=== PATIENT | female | born 1935 | race Caucasian/White ===

== ENCOUNTER 2017-11-09 08:03 | Day surgery (SDC) | payer MEDICARE ==
[2017-11-03 15:47] VITALS: BMI 35.5
[~2017-11-09 08:03] MED LIST: LACTATED RINGERS 1,000 ML IV SCH
[2017-11-09 08:28] VITALS: RESP 16; TEMP 98
[2017-11-09] MEDS ORDERED: LIDOCAINE 1% 20 ML VIAL (10MG/ML) FOR IV START INTRADERMA ONE (08:38)
[2017-11-09] MEDS ORDERED: LIDOCAINE 1% INJ 10MG/ML (20 ML MDV) ONE (08:54)
[2017-11-09] MEDS ORDERED: PROPOFOL 10 MG/ML 20 ML VIAL IV ONE (08:54)
--- NOTE | 2017-11-09 09:31 | P.PCN ---
Date of Procedure: 11/09/17 Procedure(s) Performed: Procedure: Esophagogastroduodenoscopy and dilation of duodenal post bulbar stricture up to 12 mm. 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 Postoperative diagnosis: 1. High-grade stenosis in the immediate post bulbar area dilated up to 12 mm using the [employer] pyloric channel balloon dilator. 2. Hiatal hernia with no obvious complicated reflux disease. 3. Normal stomach. Preparation and sedation: Was provided by anesthesia. Brief clinical history: The patient is a 82-year-old female who was evaluated in the office regarding early satiety and weight loss progressive over the last 3 months. The patient had similar problems back in April 2014 and at that time she was found to have a post bulbar stricture that was dilated in 2013 in 2015 and she has done well until this time. Procedure: With the patient on her left lateral decubitus position and after informed consent and adequate sedation, I passed the Olympus-GIF 160 video upper endoscope through the cricopharyngeus down the esophagus. GE junction was around 32 cm from the incisors and there was a sliding hiatal hernia but no obvious esophagitis or complicated reflux disease. The endoscope was then passed into the stomach which was insufflated with air and inspected in detail including the retroflex view in the cardia. No obvious abnormalities were seen in the stomach. Finally, the endoscope was advanced through the pylorus into the duodenum. There was a high-grade stenosis in the immediate post bulbar area that would not allow the passing of the endoscope. At this point, I used the [employer] through the endoscope pyloric channel balloon dilator size 10-12 and passed it through the area of stenosis, centered it and then inflated it in a stepwise fashion up to 12 mm. I was able to pass the endoscope passed through into the descending duodenum without difficulty once the dilation was accomplished. The patient tolerated the procedure well and did not have any immediate complication. Plan: The patient will be kept on clear liquids today then her diet can be advanced tomorrow as tolerated. Based on her symptoms, I anticipate considering further dilation depending on her symptoms in the future. She will follow-up in the office as planned.
[2017-11-09 09:45] VITALS: BP 142/71; PULSE 70
== END 2017-11-09 10:25 | disposition home or self-care (01) ==
LOC: ORWHC2ENDO 08:03
DX: K31.5 Obstruction of duodenum (principal); K21.9 Gastro-esophageal reflux disease without esophagitis; I10 Essential (primary) hypertension; M19.90 Unspecified osteoarthritis, unspecified site; Z85.41 Personal history of malignant neoplasm of cervix uteri; Z79.82 Long term (current) use of aspirin; Z79.899 Other long term (current) drug therapy
CPT/HCPCS: 43245; J2001; J2704; C1726

== ENCOUNTER 2020-12-16 08:53 | Day surgery (SDC) | payer MEDICARE ==
[2020-12-14 10:58] VITALS: BMI 31.7
[2020-12-16 09:30] VITALS: TEMP 98.2
[2020-12-16] MEDS ORDERED: LACTATED RINGERS 1,000 ML IV ONE (09:36)
[2020-12-16] MEDS ORDERED: LIDOCAINE 1% (10MG/ML) FOR IV START INTRADERMA ONE (09:36)
[2020-12-16] MEDS ORDERED: PROPOFOL 10 MG/ML 20 ML VIAL IV ONE (09:58)
[2020-12-16] MEDS ORDERED: LIDOCAINE 1% INJ 10MG/ML (20 ML MDV) ONE (09:58)
--- NOTE | 2020-12-16 10:16 | P.PCN ---
Date of Procedure: 12/16/20 Procedure(s) Performed: BRIEF HISTORY: Patient is a 85-year-old, pleasant, white female scheduled for an upper endoscopy with a possible dilation as a part of evaluation of epigastric discomfort, early satiety and intermittent nausea vomiting. She was diagnosed with duodenal stricture in 2018 for which she underwent EGD with dilation with Dr. Gentile. PROCEDURE PERFORMED: Esophagogastroduodenoscopy with stricture dilation. PREOPERATIVE DIAGNOSIS: Symptomatic duodenal stricture. IV sedation per anesthesia. PROCEDURE: After informed consent was obtained, the patient was brought into the endoscopy unit. IV sedation was administered by Anesthesia under continuous monitoring. Initially the Olympus GIF-140 video endoscope was inserted into the mouth. Esophagus intubated without any difficulty. It was gradually advanced into the stomach and duodenum bulb and carefully examined. The of the duodenum appeared normal. There was a very tight post bulbar duodenal stricture and he could not advance the scope through this area. The luminal diameter of the cecum was to 3 mm. At this time I proceeded with pyloric balloon dilation and the wire was passed patchy through the stricture and the dilator was passed over the wire and was dilated initially to 8 mm and subsequently to 19 mm sequentially for 60 seconds. There was a small superficial ulceration noted around the duodenal stricture. Some oozing identified following dilation. The scope at this time was withdrawn to the stomach, adequately insufflated with air, and upon careful examination, mucosa of the antrum, body, cardia and the fundus appeared normal. The scope was then withdrawn into the esophagus. The GE junction was located at 39 cm from the incisors. The esophagus appeared normal. There were no erosions or ulcerations seen and the patient tolerated the procedure well. IMPRESSION: 1. Tight post bulbar duodenal stricture status post balloon dilation using 8-10 mm TTS balloon as the scope could not be advanced. 2. Ulceration noted along the duodenal stricture. RECOMMENDATIONS: The findings of this examination were discussed with the patient as well as a family. She was advised to be on a clear liquid diet today. She will continue with Protonix 40 mg daily and avoid NSAIDs. She'll be seen in office in 2-3 months..
[2020-12-16 10:50] VITALS: BP 166/96; PULSE 55; RESP 20
== END 2020-12-16 10:49 | disposition home or self-care (01) ==
LOC: ORWHC2ENDO 08:53
PROVIDERS: ATTEND Internal Medicine Gastroenterology
DX: K31.5 Obstruction of duodenum (principal); I49.9 Cardiac arrhythmia, unspecified; I10 Essential (primary) hypertension; I48.91 Unspecified atrial fibrillation; K21.9 Gastro-esophageal reflux disease without esophagitis; R35.0 Frequency of micturition; Z79.01 Long term (current) use of anticoagulants
CPT/HCPCS: 43245; J2001; J2704; C1726

== ENCOUNTER 2021-03-30 07:48 | Day surgery (SDC) | payer MEDICARE ==
[2021-03-26 09:56] VITALS: BMI 32.3
[~2021-03-30 07:48] MED LIST changes: +LIDOCAINE 1% (10MG/ML) FOR IV START INTRADERMA PRN
[2021-03-30 08:29] VITALS: TEMP 98.4
[2021-03-30] MEDS ORDERED: LIDOCAINE 1% INJ 10MG/ML (20 ML MDV) ONE (09:00)
[2021-03-30] MEDS ORDERED: PROPOFOL 10 MG/ML 20 ML VIAL IV ONE (09:00)
[2021-03-30 09:33] VITALS: PULSE 55; RESP 16
--- NOTE | 2021-03-30 09:35 | P.PCN ---
Date of Procedure: 03/30/21 Procedure(s) Performed: BRIEF HISTORY: Patient is a 85-year-old, pleasant, white female scheduled for an upper endoscopy as a part of evaluation of nausea vomiting for the last several months duration. She was diagnosed with tight duodenal stricture that was diagnosed in December 2020 was dilated with a 10 mm TTS balloon. She did well for a few weeks. Recurrent symptoms he scheduled for repeat upper endoscopy with dilation today. PROCEDURE PERFORMED: Esophagogastroduodenoscopy with attempted duodenal stricture dilation. PREOPERATIVE DIAGNOSIS: Symptomatic duodenal stricture. IV sedation per anesthesia. PROCEDURE: After informed consent was obtained, the patient was brought into the endoscopy unit. IV sedation was administered by Anesthesia under continuous monitoring. Initially the Olympus GIF-140 video endoscope was inserted into the mouth. Esophagus intubated without any difficulty. It was gradually advanced into the stomach . The scope advanced into the duodenal bulb that appeared normal. There was a tight duodenal stricture measuring about 3 mm in diameter along the duodenal sweep and scope could not be advanced this area. At this time I proceeded with balloon dilation but despite multiple attempts because of angulation of the stricture I was not able to pass the guidewire safely through the stricture and hence dilation could not be performed. The scope at this time was withdrawn to the stomach, adequately insufflated with air, and upon careful examination, mucosa of the antrum, body, cardia and the fundus appeared normal. The scope was then withdrawn into the esophagus. The GE junction was located at 39 cm from the incisors. The esophagus appeared normal. There were no erosions or ulcerations seen and the patient tolerated the procedure well. IMPRESSION: 1. Tight duodenal post bulbar stricture with a luminal diameter of 3-4 mm status post attempted dilation but was not successful because of angulation of the stricture. 2. Or hiatal hernia. RECOMMENDATIONS: The findings of this examination were discussed with the patient is a family. She will continue with small frequent meals and continue Protonix 40 mg daily. If she remains symptomatic we'll consider surgical evaluation for a gastrojejunostomy.
[2021-03-30 10:04] VITALS: BP 175/71
== END 2021-03-30 10:20 | disposition home or self-care (01) ==
LOC: ORWHC2ENDO 07:48
PROVIDERS: ATTEND Internal Medicine Gastroenterology
DX: K44.9 Diaphragmatic hernia without obstruction or gangrene (principal); Z79.01 Long term (current) use of anticoagulants; Z79.899 Other long term (current) drug therapy; I10 Essential (primary) hypertension; I48.91 Unspecified atrial fibrillation; M19.90 Unspecified osteoarthritis, unspecified site; K21.9 Gastro-esophageal reflux disease without esophagitis
CPT/HCPCS: 43245; J2001; J2704; C1726

== ENCOUNTER → 2021-05-06 | Outpatient (CLI) | payer MEDICARE ==
--- NOTE | 2021-05-06 10:16 | FL ---
EXAMINATION: Upper GI with small bowel follow through DATE: 05/06/2021 CLINICAL INDICATION: 85-year-old female K31.5. Obstruction of duodenum. COMPARISON: None Total Fluoroscopy Time: 3 minutes 10 seconds 76 images obtained. FINDINGS: The esophagus has a normal course and caliber. There are mild tertiary peristaltic waves and blunted secondary stripping waves suggesting mild esophageal dysmotility. The mucosa is normal. No suspicious filling defects. There is a small to moderate-sized sliding hiatal hernia. Mild spontaneous gastroesophageal reflux is noted. The stomach and duodenum are free of any persistent filling defect and demonstrate a normal mucosal p attern. Following administration of barium, serial films were carried out to approximately 45 minutes. Barium is seen to reach the colon at 30 minutes which is the lower limits of normal. Loops of jejunum and ileum are compressed and examined under fluoroscopy. The small bowel loops have a normal-caliber. Mucosal pattern is within normal limits. No intrinsic or extrinsic process is suspe cted. IMPRESSION: 1. A small to moderate-sized sliding hiatal hernia with mild spontaneous gastroesophageal reflux visu alized. 2. Mild esophageal dysmotility. 3. No appreciable stricture or obstruction with particular attention to the duodenum. 4. Small bowel transit time 30 minutes, lower limits of normal
== END | disposition home or self-care (01) ==
LOC: RADFLMAIN 07:48
PROVIDERS: ATTEND Surgery Plastic and Reconstructive Surgery
DX: K21.9 Gastro-esophageal reflux disease without esophagitis (principal); K44.9 Diaphragmatic hernia without obstruction or gangrene; K22.4 Dyskinesia of esophagus
CPT/HCPCS: 74240; 74248

== ENCOUNTER → 2022-02-22 | Outpatient (CLI) | payer MEDICARE ==
--- NOTE | 2022-02-22 18:23 | CT ---
EXAMINATION TYPE: CT right knee - [facility] Protocol CT DLP: 787.3 mGycm, Automated exposure control for dose reduction was used. DATE OF EXAM: 02/22/2022 4:31 PM COMPARISON: None CLINICAL INDICATION:Female, 86 years old with history of M25.561 PAIN IN RIGHT KNEE; TECHNIQUE: Axial images were obtained of the right knee . Additional coronal and sagittal reformatte d images and soft tissue and bone window were obtained for review. Contrast used: None Oral contrast used: None FINDINGS: Has end-stage osteoarthrosis changes of the right knee with osteophyte formation of the pat alessio, femoral condyles and the tibial plateau. There is joint space narrowing and [id number] articu lation of the medial compartment. There is no evidence of fracture. The right hip demonstrates mild osteoarthrosis changes with minimal cellular osteophyte formation. Vi sualized ankle demonstrates mild degeneration changes with remote injury of the deltoid ligament sugg nazariod. Scattered clonic diverticula within the visualized pelvis. Atherosclerosis of the arterial vasculatur e is mild. IMPRESSION: 1. End-stage osteoarthrosis of the right knee. 2. No evidence of fracture.
== END | disposition home or self-care (01) ==
LOC: RADCTMAIN 15:12
PROVIDERS: ATTEND Orthopaedic Surgery
DX: M17.11 Unilateral primary osteoarthritis, right knee (principal)

== ENCOUNTER → 2022-03-14 | Outpatient (CLI) | payer MEDICARE ==
[2022-03-14 12:01] LABS: Partial Thromboplastin Time 26.5 sec (22.0-30.0)
[2022-03-14 15:27] LABS: INR 1.1 (<1.2); Prothrombin Time 11.9 sec (9.0-12.0)
[2022-03-14 15:29] LABS: Basophils # (A) 0.04 X 10*3/uL (0.00-0.10); Basophils % (A) 0.7 %; Eosinophils # (A) 0.11 X 10*3/uL (0.04-0.35); Eosinophils % (A) 1.8 %; HCT 36.4 % (37.2-46.3); HGB 11.5 g/dL (12.0-15.0); Immature Grans, Automated 0.3 %; Lymphocytes # (A) 1.68 X 10*3/uL (0.90-5.00); Lymphocytes % (A) 27.8 %; MCH 28.9 pg (27.0-32.0); MCHC 31.6 g/dL (32.0-37.0); MCV 91.5 fL (80.0-97.0); Mean Platelet Volume 10.6 fL (9.5-12.2); Monocytes % (A) 8.3 %; NRBC Per 100 WBC 0 /100 WBCS (0.0-0.0); Neutrophils # (A) 3.69 X 10*3/uL (1.80-7.70); Neutrophils % (A) 61.1 %; Platelet Count 248 X 10*3/uL (140-440); RBC 3.98 X 10*6/uL (4.10-5.20); RDW 15.4 % (11.5-14.5); WBC 6.04 X 10*3/uL (4.50-10.00)
[2022-03-14 16:16] LABS: African American GFR (CKD) 53.4 (60.0-200.0); Albumin 4.4 g/dL (3.8-4.9); Albumin/Globulin Ratio 2.2 (1.60-3.17); Anion Gap 9.9 mmol/L (10.00-18.00); BUN/Creat Ratio 20.73 Ratio (12.00-20.00); Blood Urea Nitrogen 22.8 mg/dL (9.0-27.0); Calcium 9.5 mg/dL (8.7-10.3); Carbon Dioxide 23.1 mmol/L (20.0-27.5); Non-African American GFR(CKD) 46.1 (60.0-200.0); Total Bilirubin 0.3 mg/dL (0.30-1.20); Total Protein 6.4 g/dL (6.2-8.2)
== END | disposition home or self-care (01) ==
LOC: LABWHC1 10:01
PROVIDERS: ATTEND Orthopaedic Surgery
DX: Z01.812 Encounter for preprocedural laboratory examination (principal); M17.11 Unilateral primary osteoarthritis, right knee
CPT/HCPCS: 80053; 85025; 85610; 85730; 87070; 87086; 93005

== ENCOUNTER 2022-04-01 08:45 | Observation (INO) | payer MEDICARE ==
[2022-03-25 14:13] VITALS: BMI 31.2
[~2022-04-01 08:45] MED LIST changes: +ACETAMINOPHEN TAB 500 MG TAB PO PRN; +DEXAMETHASONE SOD PHOSPHATE 10 MG/ML 1 ML VIAL IV PRN; +DOCUSATE 100 MG CAP PO PRN; +FAMOTIDINE 20 MG/2 ML VIAL IVP PRN; +KETOROLAC 15 MG/ML 1 ML VIAL IVP PRN; -LACTATED RINGERS 1,000 ML IV SCH; -LIDOCAINE 1% (10MG/ML) FOR IV START INTRADERMA PRN; +ONDANSETRON 4 MG/2 ML VIAL IVP PRN; +TRANEXAMIC ACID IN NACL,ISO-OS 1,000 MG in SALINE 1 100ML.BAG IVPB PRN; +oxyCODONE ER 10 MG TAB.ER.12H PO PRN
[2022-04-01] MEDS ORDERED: LACTATED RINGERS 1,000 ML IV ONE (09:20)
[2022-04-01] MEDS ORDERED: MIDAZOLAM 2 MG/2 ML VIAL IVP ONE (09:38)
--- NOTE | 2022-04-01 10:04 | P.ANPRN ---
Procedure Note - Anesthesia - Nerve Block Performed Right Adductor Canal Single Time Out Performed: Yes Date of Procedure: 04/01/22 Procedure Start Time: 09:37 Procedure Stop Time: 09:44 Location of Patient: PreOp Indication: Acute Post-Operative Pain, Requested by Surgeon Sedation Type: Sedate with meaningful contact maintained Preparation: Sterile Prep, Sterile Dressing Position: Supine Catheter: None Needle Types: Facet Needle Gauge: 21 Ultrasound used to visualize needle placement: Yes Ultrasound used to observe medication spread: Yes Injectate: 0.5% Ropivacaine (see comment for volume) (15 ml + decadron 2 mg) Blood Aspirated: No Pain Paresthesia on Injection Noted: No Resistance on Injection: Normal Image Stored and Saved: Yes Events: Uneventful and Well Tolerated Right iPack Single Time Out Performed: Yes Date of Procedure: 04/01/22 Procedure Start Time: 09:45 Procedure Stop Time: 09:52 Location of Patient: PreOp Indication: Acute Post-Operative Pain, Requested by Surgeon Sedation Type: Sedate with meaningful contact maintained Preparation: Sterile Prep, Sterile Dressing Position: Left Lateral Catheter: None Needle Types: Facet Needle Gauge: 20 Ultrasound used to visualize needle placement: Yes Ultrasound used to observe medication spread: Yes Injectate: 0.5% Ropivacaine (see comment for volume) (15 ml + decadron 2 mg) Blood Aspirated: No Pain Paresthesia on Injection Noted: No Resistance on Injection: Normal Image Stored and Saved: Yes Events: Uneventful and Well Tolerated
[2022-04-01] MEDS: ROPIVACAINE/EPI/CLONIDINE/KET 50 ML SYRINGE MISCELLANE PRN ×2 (10:46→11:38)
[2022-04-01] MEDS ORDERED: ROCURONIUM 10 MG/ML (5 ML VIAL) IV ONE (12:25)
[2022-04-01] MEDS ORDERED: NEOSTIGMINE 1 MG/ML 10 ML VIAL ONE (12:25)
[2022-04-01] MEDS ORDERED: TRANEXAMIC ACID IN NACL,ISO-OS 1,000 MG/100 ML BAG ONE (12:25)
[2022-04-01] MEDS ORDERED: METOPROLOL TARTRATE 5 MG/5 ML VIAL IVP ONE (12:25)
[2022-04-01] MEDS ORDERED: fentaNYL (PF) 50 MCG/ML 2 ML AMP ONE (12:25)
[2022-04-01] MEDS ORDERED: GLYCOPYRROLATE 0.2 MG/ML 2 ML VIAL ONE (12:25)
[2022-04-01] MEDS ORDERED: LIDOCAINE 2% INJ 20 MG/ML (2 ML VIAL) ONE (12:25)
[2022-04-01] MEDS ORDERED: DEXAMETHASONE SOD PHOSPHATE 4 MG/ML 1 ML VIAL ONE (12:25)
[2022-04-01] MEDS ORDERED: SUCCINYLCHOLINE CHLORIDE 200 MG/10 ML VIAL IV ONE (12:25)
[2022-04-01] MEDS ORDERED: HYDROmorphone (PF) 1 MG/ML ONE (12:25)
[2022-04-01] MEDS ORDERED: PROPOFOL 10 MG/ML 20 ML VIAL IV ONE (12:25)
[2022-04-01] MEDS ORDERED: ROPIVACAINE 5 MG/ML 30 ML VIAL ONE (12:25)
[2022-04-01] MEDS ORDERED: HYDROmorphone 0.5 MG/0.5 ML SYRINGE IVP PRN ×3 (12:29)
[2022-04-01] MEDS ORDERED: NALOXONE 0.4 MG/ML 1 ML VIAL IV PRN (12:29)
[2022-04-01] MEDS ORDERED: hydrOXYzine pamoate 25 MG CAP PO PRN (12:29)
[2022-04-01] MEDS ORDERED: ONDANSETRON 4 MG/2 ML VIAL IVP PRN (12:29)
--- NOTE | 2022-04-01 12:30 | P.OP ---
Date of Procedure: 04/01/22 Preoperative Diagnosis: 1. Severe right knee osteoarthritis 2. Atrial fibrillation Postoperative Diagnosis: Same Procedure(s) Performed: Right total knee arthroplasty Implants: 1. [employer] CR Femur Size #2 2. [employer]lon [place] Tibial Base Size #1 3. [employer] Triathlon CS poly Size #1, 9-mm 4. [place] Triathlon all poly patella, Size #29 Anesthesia: HARVINDER, regional Surgeon: Jacinto Randle Excel Expert #1: Aleta Parada Estimated Blood Loss (ml): 50 IV fluids (ml): 800 Pathology: none sent Condition: stable Disposition: PACU Indications for Procedure: I met with the patient preoperatively in the office setting and discussed treatment of their symptomatic knee arthritis. They failed a long course of nonsurgical treatment and elected to proceed with an elective total knee re placement. I discussed the potential risks and complications at length and gave them ample time to ask questions. Risks discussed included: risks from anesthesia, superficial site surgical infection, acute and/or chronic periprosthetic joint infection, delayed wound healing, drainage, wound necrosis, instability, stiffness, stiffness requiring manipulation and/or revision surgery, damage to local blood vessels or nerves, aseptic loosening of the implants, extensor mechanism issues including disruption, patellar maltracking, avascular necrosis etc., continued or worsened knee pain, generalized dissatisfaction with surgical outcome, need for revision surgery, an inability to regain preinjury level of function, DVT, PE, other medical complications, and possibly loss of life or limb. The patient voiced their understanding that while these are the most common complications other less common complications are possible. They provided both their verbal and written consent to go forward with surgery. Operative Findings: Severe tricompartmental osteoarthritis Description of Procedure: The patient was identified in preoperative holding and the correct operative extremity was verified and marked with a marker. I reviewed the consent form with the patient at length. All of their questions were answered. The patient was given a block by anesthesia. They were then brought back to the operating room. They were transferred onto the operating room table where a general anesthetic, preoperative antibiotics, and tranexamic acid were administered by anesthesia. A tourniquet was applied to the proximal aspect of the operative extremity. The contralateral extremity was padded under the heel and secured to the operating room table with a nonsterile blue towel and tape. The ipsilateral arm was carefully draped across the patient's chest and secured with a pillow and foam. A post was applied over the lateral aspect of the ipsilateral thigh and a bolster was placed under the ipsilateral foot. I verified that the operative extremity was stable and the knee was flexed to 90. The operative extremity was then placed in a leg mitchell, nonsterile drapes were applied, and the extremity was prepped and draped sterilely in the standard sterile fashion. Prior to starting surgery timeout was performed identifying the correct patient, operative extremity, and procedure. The leg was then elevated, exsanguinated with an Esmarch bandage, and the tourniquet was inflated. An anterior midline incision was made sharply with a scalpel. Once I had dissected deep to the superficial fascial layer medial and lateral flaps were elevated. A medial parapatellar arthrotomy was created. Upon opening the knee joint there were diffuse arthritic changes in all 3 compartments. The anterior horn of the medial meniscus were sharply released and a medial release was performed around the posterior medial corner of the knee to facilitate retractor placement. The fat pad was excised with electrocautery. The patella was found to be severely arthritic and a provisional cut was made with a sagittal saw to facilitate mobilization of the extensor mechanism during the procedure. Remnants of the ACL and PCL were then excised from the notch. 4 mm pins were then placed within the incision in the medial distal femur and proximal tibia. Arrays were applied to the pins and I verified they were completely tightened. The knee was then registered with the [employer] robot and manipulations in implant position were made to balance the knee and opitmize implant position. Using the Drew robotic saw all cuts were made in accordance with our plan. After all bony fragments had been removed the cuts were verified with the planar probe. The t ibia was then subluxed forward and sized. The knee was brought into flexion and a lamina dramatic director was placed to allow removal of the meniscal remnants both medially and laterally as well as posterior osteophytes. Local anesthetic was then infiltrated around the joint capsule. Trial implants were then placed within the knee. Range of motion and collateral ligament tension was then evaluated. Adjustments in implant size and position were then made accordingly. Once the knee was felt to be appropriately balanced the Drew pins were removed. The patella was then recut, sized, and punched. A trial patellar button was then placed. With the trial components in place, the patella tracked midline. The femur was then drilled and the trial component removed. The trial tibial component was then appropriately rotated, pinned, and prepared for the keel. All trial components were then removed from the knee. The knee was thoroughly irrigated with pulsatile lavage. Cement was prepared via vacuum mixing in a bowl on the back table. I then hand pressurized cement into the femur and tibia and placed the implants beginning with the tibial base tray and poly liner, femoral component, and finally the patellar button. All extruded cement was removed including from the pin sites. Once the cement had hardened the knee was evaluated one final time with the final polyethylene liner in place. The knee had full extension and flexion and felt stable to varus and valgus stress throughout the arc of motion. The tourniquet was released and with the tourniquet down the patella tracked midline. All bleeders were controlled with electrocautery. The knee was then soaked for 3 minutes with a dilute Betadine soak. The knee was thoroughly irrigated using 3 L of sterile saline and pulsatile lavage. A deep drain was placed. The extensor mechanism was then reapproximated using pop off Vicryl sutures followed by a running barbed suture. The knee was then closed in layers with a 0 strata fix for the deep fascial layer, 2-0 strata fix for the superficial subcutaneous layer and Monocryl and Steri-Strips for the skin. A sterile dressing and drain sponge were applied. I verified that all instrument, sponge, and sharp counts were correct. The patient was then transferred off the operating room table, extubated, and brought to recovery having tolerated the procedure well. Aleta Parada PA-C was required as a skilled senior administrative assistant due to the complexity of the procedure for patient positioning, draping, retraction, placement of hardware, and closure of wound. PLAN: The patient can weight-bear as tolerated on the operative extremity. DVT prophylaxis - can resume Eliquis. Follow-up in the office in 2 weeks for wound check and x-rays of the knee including an AP and lateral.
--- NOTE | 2022-04-01 12:58 | XR ---
EXAMINATION TYPE: XR knee limited RT DATE OF EXAM: 04/01/2022 COMPARISON: NONE HISTORY: 86-year-old female postoperative evaluation right knee TECHNIQUE: 2 views FINDINGS: Images show placement of right total knee arthroplasty. Both distal femoral and proximal ti bial components of the prosthesis are well seated without periprosthetic fracture. Surgical drain ext ends to the suprapatellar region. Anterior soft tissue swelling with scattered soft tissue air as wel l as intra-articular air related to recent operation. Alignment grossly anatomic. IMPRESSION: Uncomplicated postoperative appearance right total knee arthroplasty.
[2022-04-01] MEDS: LACTATED RINGERS 1,000 ML IV SCH (13:17)
[2022-04-01] MEDS: HYDROcodone/APAP 5-325MG 1 EACH TAB PO PRN (20:02)
[2022-04-01] MEDS: SENNOSIDES-DOCUSATE SODIUM 1 EACH TAB PO SCH (20:49)
[2022-04-02] MEDS: LACTATED RINGERS 1,000 ML IV SCH ×3 (00:02→20:28)
[2022-04-02] MEDS: HYDROcodone/APAP 5-325MG 1 EACH TAB PO PRN ×4 (02:28→20:29)
[2022-04-02] MEDS: FAMOTIDINE 20 MG TAB PO SCH (08:26)
--- NOTE | 2022-04-02 08:58 | P.CONS ---
History of Present Illness - History of Present Illness This is a pleasant 86 years old female with multiple medical problems admitted for severe osteoarthritis and she underwent total knee arthroplasty. Today is postoperative day #1. Patient denies chest pain or dyspnea. No other complaints. No abdominal pain, she has constipation but she wants to wait and denied any legs active, no urinary complaints like no change in frequency or dysuria, no headache or numbness or weakness. No headache or dizziness. Last that she has some hallucination and she got agitated and pulled her IV line, could be secondary to anesthesia medications However this morning is back to normal Vitals stable and blood pressure is normal. 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, anemia, overactive bladder, History of Any Multi-Drug Resistant Organisms: None Reported Past Surgical History: Heart Catheterization, Hysterectomy, Joint Replacement, Tonsillectomy Additional Past Surgical History / Comment(s): Colonoscopy; RICHARD CATARACT, EGD'SWITH DILATATION x8, left knee replacement Past Anesthesia/Blood Transfusion Reactions: Motion Sickness Past Psychological History: No Psychological Hx Reported Smoking Status: Never smoker Past Alcohol Use History: Rare Past Drug Use History: None Reported - Past Family History Mother Family Medical History: Hypertension, Osteoarthritis (OA) Father Family Medical History: Cancer Son(s) Family Medical History: Cancer Medications and Allergies Home Medications Medication Instructions Recorded Confirmed Type Celecoxib [CeleBREX] 200 mg PO DAILY 04/25/14 03/25/22 History Cholecalciferol [Vitamin D3] 2,000 unit PO DAILY 04/25/14 04/01/22 History Diltiazem Cd [Cardizem CD] 180 mg PO DAILY 04/25/14 03/25/22 History Lansoprazole [Prevacid] 30 mg PO DAILY 04/25/14 03/25/22 History Oxybutynin Chloride [Ditropan] 5 mg PO BID 04/25/14 04/01/22 History Docusate [Colace] 100 mg PO DAILY 11/03/17 03/25/22 History Apixaban [Eliquis] 5 mg PO BID 12/14/20 04/01/22 History lisinopriL [Zestril] 10 mg PO DAILY 12/14/20 03/25/22 History Acetaminophen [Tylenol Arthritis] 650 mg PO DIRECTED PRN 03/25/22 03/25/22 History Metoprolol Tartrate [Lopressor] 50 mg PO QAM 03/25/22 03/25/22 History Docusate [Colace] 100 mg PO BID #60 capsule 04/01/22 Rx HYDROcodone/APAP 5-325MG [[place] 1 - 2 tab PO Q6HR PRN 7 Days #32 04/01/22 Rx 5-325] tab Omeprazole 40 mg PO DAILY 30 Days #30 cap 04/01/22 Rx Allergies Allergy/AdvReac Type Severity Reaction Status Date / Time No Known Allergies Allergy Verified 04/01/22 09:08 Physical Exam Vitals: Vital Signs Temp Pulse Pulse Resp BP BP Pulse Ox 04/02/22 08:00 98.0 F 105 H 16 119/67 93 L 04/02/22 02:00 98.0 F 95 16 142/76 95 04/01/22 20:00 97.5 F L 95 16 125/68 96 04/01/22 15:49 18 04/01/22 15:07 77 135/69 93 L 04/01/22 14:51 91 125/71 93 L 04/01/22 14:37 100 123/81 95 04/01/22 14:21 87 138/78 97 04/01/22 14:06 88 142/85 94 L 04/01/22 14:00 98.2 F 77 18 132/81 95 04/01/22 13:48 98.1 F 79 18 143/72 94 L 04/01/22 13:14 92 16 146/83 99 04/01/22 12:59 92 16 134/69 97 04/01/22 12:44 86 16 116/63 96 04/01/22 12:29 97 F L 83 14 112/55 97 04/01/22 09:50 75 16 132/57 98 04/01/22 09:08 97.4 F L 95 16 138/73 99 Intake and Output 04/01/22 04/02/22 04/02/22 22:59 06:59 14:59 Intake Total 1080 240 Output Total 10 60 Balance 1070 180 Intake: Intake, IV Titration 600 Amount Lactated Ringers 1,000 ml 600 @ 100 mls/hr IV .Q10H [facility] Rx#:[id number] Oral 480 240 Output: Drainage 10 60 Right Knee 10 60 Other: Voiding Method Bedside Commode # Voids 2 1 GENERAL: The patient is alert and oriented x3, not in any acute distress. Well developed, well nourished. HEENT: Pupils are round and equally reacting to light. EOMI. No scleral icterus. No conjunctival pallor. Normocephalic, atraumatic. No pharyngeal erythema. No thyromegaly. CARDIOVASCULAR: S1 and S2 present. No murmurs, rubs, or gallops. PULMONARY: Chest is clear to auscultation, no wheezing or crackles. ABDOMEN: Soft, nontender, nondistended, normoactive bowel sounds. No palpable organomegaly. -MUSCULOSKELETAL: No joint swelling or deformity. Right knee surgical wound with a dressing in a Place, rest of exam is deferred to surgery team EXTREMITIES: No cyanosis, clubbing, or pedal edema. NEUROLOGICAL: Gross neurological examination did not reveal any focal deficits. SKIN: No rashes. no petechiae. Assessment and Plan Assessment: Severe osteoarthritis status post right knee arthroplasty Chronic atrial fibrillation History of GERD Plan: Continue with pain management as per surgery team Monitor blood pressure and heart rate Monitor hemoglobin Orthopedic primary team on the case Labs and medication were reviewed.. Continue same treatment. Continue with symptomatic treatment. Resume home medication. Monitor lytes and vitals. DVT and GI prophylaxis. Further recommendations as per clinical course of the patient DVT prophylaxis: Deferred to surgery team GI Prophylaxis: Isa Thank you for consulting us
[2022-04-02] MEDS: METOPROLOL TARTRATE 25 MG TAB PO SCH (12:19)
[2022-04-02 13:10] LABS: Basophils # (A) 0.02 X 10*3/uL (0.00-0.10); Basophils % (A) 0.1 %; Eosinophils # (A) 0 X 10*3/uL (0.04-0.35); Eosinophils % (A) 0 %; HCT 34.4 % (37.2-46.3); HGB 11.2 g/dL (12.0-15.0); Immature Grans, Automated 0.6 %; Lymphocytes % (A) 6.1 %; MCH 29.4 pg (27.0-32.0); MCHC 32.6 g/dL (32.0-37.0); MCV 90.3 fL (80.0-97.0); Mean Platelet Volume 10.9 fL (9.5-12.2); Monocytes # (A) 1.36 X 10*3/uL (0.20-1.00); Monocytes % (A) 7.5 %; NRBC Per 100 WBC 0 /100 WBCS (0.0-0.0); Neutrophils # (A) 15.57 X 10*3/uL (1.80-7.70); Neutrophils % (A) 85.7 %; Platelet Count 255 X 10*3/uL (140-440); RBC 3.81 X 10*6/uL (4.10-5.20); RDW 14.7 % (11.5-14.5); WBC 18.16 X 10*3/uL (4.50-10.00)
--- NOTE | 2022-04-02 14:04 | P.PN ---
Subjective Progress Note Date: 04/02/22 Principal diagnosis: Right total knee Patient is seen at bedside this morning. She is postop day #1 from right total knee arthroplasty. She has pain at the surgical site as expected but denies any new complaints. She denies numbness, tingling or calf pain. Review of systems is negative for fever, chills, chest pain, shortness of breath or other Objective - Vital Signs Vital signs: Vital Signs Temp 98.0 F 04/02/22 08:00 Pulse 105 H 04/02/22 08:00 Resp 16 04/02/22 08:00 BP 119/67 04/02/22 08:00 Pulse Ox 93 L 04/02/22 08:00 FiO2 Intake & Output 04/01/22 04/02/22 04/02/22 18:59 06:59 18:59 Intake Total 2130 240 Output Total 60 60 Balance 2070 180 Weight 72.8 kg Intake: IV 1050 Intake, IV Titration 600 Amount Lactated Ringers 1,000 ml 600 @ 100 mls/hr IV .Q10H [facility] Rx#:[id number] Oral 480 240 Output: Drainage 10 60 Right Knee 10 60 Estimated Blood Loss 50 Other: Voiding Method Bedside Commode # Voids 2 1 - Exam Inspection reveals a benign surgical wound. There is no active bleeding or drainage. Neurovascular status is intact throughout the lower extremity with motor and sensation fully intact. Calf is soft and nontender. 2+ dorsalis pedis pulse and less than 2 second cap refill is present. - Constitutional General appearance: Present: no acute distress - Labs CBC & Chem 7: 04/02/22 07:48 Labs: Abnormal Lab Results - Last 24 Hours (Table) 04/02/22 Range/Units 07:48 WBC 18.16 H (4.50-10.00) X 10*3/uL RBC 3.81 L (4.10-5.20) X 10*6/uL Hgb 11.2 L (12.0-15.0) g/dL Hct 34.4 L (37.2-46.3) % RDW 14.7 H (11.5-14.5) % Immature Gran # 0.11 H (0.00-0.04) X 10*3/uL Neutrophils # 15.57 H (1.80-7.70) X 10*3/uL Monocytes # 1.36 H (0.20-1.00) X 10*3/uL Eosinophils # 0 L (0.04-0.35) X 10*3/uL Assessment and Plan (1) Right knee DJD Narrative/Plan: She will continue with routine postop orthopedic protocol including pain management, wound care, PT, DVT prophylaxis and medical management. Expect that she will transfer to home vs rehab in next 1-2 days Current Visit: Yes Status: Acute Priority: Medium Code(s): M17.11 - UNILATERAL PRIMARY OSTEOARTHRITIS, RIGHT KNEE SNOMED Code(s): 668815414482333 Time with Patient: Less than 30
[2022-04-02] MEDS: OXYBUTYNIN CHLORIDE 5 MG TAB PO SCH (20:28)
[2022-04-02] MEDS: SENNOSIDES-DOCUSATE SODIUM 1 EACH TAB PO SCH (20:28)
[2022-04-02] MEDS: APIXABAN 5 MG TAB PO SCH (20:30)
[2022-04-03] MEDS: LACTATED RINGERS 1,000 ML IV SCH ×3 (04:14→20:57)
[2022-04-03] MEDS: HYDROcodone/APAP 5-325MG 1 EACH TAB PO PRN ×2 (04:53→11:39)
--- NOTE | 2022-04-03 08:06 | P.PN ---
Subjective Progress Note Date: 04/03/22 Patient is sitting up at bedside in a chair at the time of my evaluation. She reports some discomfort in her knee yesterday but it is significantly improved this morning. She has been up walking with a walker with minimal difficulty. Objective - Vital Signs Vital signs: Vital Signs Temp 98.6 F 04/03/22 01:18 Pulse 91 04/02/22 19:48 Resp 16 04/03/22 01:18 BP 172/97 04/03/22 01:18 Pulse Ox 97 04/03/22 01:18 FiO2 Intake & Output 04/02/22 04/03/22 04/03/22 18:59 06:59 18:59 Intake Total 400 250 Balance 400 250 Intake: Oral 400 250 Other: Voiding Method Toilet # Voids 3 - Exam The patient is sitting up in a chair. She is alert and able to answer questions. A focused examination of the patient's right lower extremity was co nducted. On inspection there clean surgical dressings with no drainage. There is mild swelling. There is no erythema. She has minimal pain with passive range of motion of the knee. There is a palpable dorsalis pedis pulse. Motor and sensory function are intact distally in the right foot. - Labs CBC & Chem 7: 04/02/22 07:48 Labs: Abnormal Lab Results - Last 24 Hours (Table) 04/02/22 Range/Units 07:48 WBC 18.16 H (4.50-10.00) X 10*3/uL RBC 3.81 L (4.10-5.20) X 10*6/uL Hgb 11.2 L (12.0-15.0) g/dL Hct 34.4 L (37.2-46.3) % RDW 14.7 H (11.5-14.5) % Immature Gran # 0.11 H (0.00-0.04) X 10*3/uL Neutrophils # 15.57 H (1.80-7.70) X 10*3/uL Monocytes # 1.36 H (0.20-1.00) X 10*3/uL Eosinophils # 0 L (0.04-0.35) X 10*3/uL Assessment and Plan Assessment: Postoperative day #2 status post right total knee replacement Plan: Continue treatment as previously outlined. Overall the patient is doing well. She would like discharged to a swing bed at [facility]. We will try to arrange this and facilitate discharge tomorrow. If this is unable to be done she will discharge home with home healthcare.
[2022-04-03] MEDS: FAMOTIDINE 20 MG TAB PO SCH (08:53)
[2022-04-03] MEDS: METOPROLOL TARTRATE 25 MG TAB PO SCH (08:53)
[2022-04-03] MEDS: APIXABAN 5 MG TAB PO SCH ×2 (08:53→20:56)
[2022-04-03] MEDS: OXYBUTYNIN CHLORIDE 5 MG TAB PO SCH ×2 (08:53→20:56)
[2022-04-03] MEDS: DILTIAZEM CD 180 MG CAP.ER.24H PO SCH (08:53)
[2022-04-03 09:40] LABS: African American GFR (CKD) 65.4 (60.0-200.0); Anion Gap 11.6 mmol/L (10.00-18.00); BUN/Creat Ratio 24.09 Ratio (12.00-20.00); Blood Urea Nitrogen 22.4 mg/dL (9.0-27.0); Carbon Dioxide 23.1 mmol/L (20.0-27.5); Non-African American GFR(CKD) 56.4 (60.0-200.0); Potassium 4.7 mmol/L (3.5-5.5)
--- NOTE | 2022-04-03 10:30 | P.PN ---
Subjective This is a pleasant 86 years old female with multiple medical problems admitted for severe osteoarthritis and she underwent total knee arthroplasty. Today is postoperative day #1. Patient denies chest pain or dyspnea. No other complaints. No abdominal pain, she has constipation but she wants to wait and denied any legs active, no urinary complaints like no change in frequency or dysuria, no headache or numbness or weakness. No headache or dizziness. Last that she has some hallucination and she got agitated and pulled her IV line, could be secondary to anesthesia medications However this morning is back to normal Vitals stable and blood pressure is normal. No labs, CBC pending 03/29/2022 Patient denies any new complaints, her pain in the right knee is somewhat controlled This morning she was walking in her room using the walker by herself with no difficulties. No chest pain or dyspnea or other complaint. Blood pressure is slightly elevated 170/93, we will keep monitoring. BMP is unremarkable. CBC still pending. Intravenous fluid discontinue it and currently she is on her home dose of Eliquis 5 mg. Objective - Vital Signs Vital signs: Vital Signs Temp 98.0 F 04/03/22 08:00 Pulse 50 L 04/03/22 08:00 Resp 18 04/03/22 08:00 BP 170/93 04/03/22 08:00 Pulse Ox 91 L 04/03/22 08:00 FiO2 Intake & Output 04/02/22 04/03/22 04/03/22 18:59 06:59 18:59 Intake Total 400 250 Balance 400 250 Intake: Oral 400 250 Other: Voiding Method Toilet Toilet # Voids 3 - Exam GENERAL: The patient is alert and oriented x3, not in any acute distress. Well developed, well nourished. HEENT: Pupils are round and equally reacting to light. EOMI. No scleral icterus. No conjunctival pallor. Normocephalic, atraumatic. No pharyngeal erythema. No thyromegaly. CARDIOVASCULAR: S1 and S2 present. No murmurs, rubs, or gallops. PULMONARY: Chest is clear to auscultation, no wheezing or crackles. ABDOMEN: Soft, nontender, nondistended, normoactive bowel sounds. No palpable organomegaly. -MUSCULOSKELETAL: No joint swelling or deformity. Right knee surgical wound wit h a dressing in a Place, rest of exam is deferred to surgery team EXTREMITIES: No cyanosis, clubbing, or pedal edema. NEUROLOGICAL: Gross neurological examination did not reveal any focal deficits. SKIN: No rashes. no petechiae. - Labs CBC & Chem 7: 04/02/22 07:48 04/03/22 05:48 Labs: Abnormal Lab Results - Last 24 Hours (Table) 04/02/22 04/03/22 Range/Units 07:48 05:48 WBC 18.16 H (4.50-10.00) X 10*3/uL RBC 3.81 L (4.10-5.20) X 10*6/uL Hgb 11.2 L (12.0-15.0) g/dL Hct 34.4 L (37.2-46.3) % RDW 14.7 H (11.5-14.5) % Immature Gran # 0.11 H (0.00-0.04) X 10*3/uL Neutrophils # 15.57 H (1.80-7.70) X 10*3/uL Monocytes # 1.36 H (0.20-1.00) X 10*3/uL Eosinophils # 0 L (0.04-0.35) X 10*3/uL Est GFR (CKD-EPI)NonAf 56.4 L (60.0-200.0) BUN/Creatinine Ratio 24.09 H (12.00-20.00) Ratio Glucose 136 H (70-110) mg/dL Assessment and Plan Assessment: Severe osteoarthritis status post right knee arthroplasty Chronic atrial fibrillation, on Eliquis at home History of GERD Plan: Continue with pain management as per surgery team Monitor blood pressure and heart rate Monitor hemoglobin Orthopedic primary team on the case Labs and medication were reviewed.. Continue same treatment. Continue with symptomatic treatment. Resume home medication. Monitor lytes and vitals. DVT and GI prophylaxis. Further recommendations as per clinical course of the patient DVT prophylaxis: Deferred to surgery team GI Prophylaxis: Isa Thank you for consulting us
[2022-04-03] MEDS: SENNOSIDES-DOCUSATE SODIUM 1 EACH TAB PO SCH (20:56)
[2022-04-04 03:15] VITALS: RESP 17; TEMP 98.4
[2022-04-04 07:47] VITALS: BP 162/75; PULSE 95
--- NOTE | 2022-04-04 08:39 | P.DS ---
Providers Date of admission: 04/04/22 06:54 Expected date of discharge: 04/04/22 Attending physician: Jacinto Randle Consults: 04/01/22 12:31 Consult Physician Routine Consulting Provider: Sheila Orozco Consult Reason/Comments: medical management Do you want consulting provider notified?: Yes 04/01/22 15:39 Consult Physician Routine Consulting Provider: Dong Dewey Consult Reason/Comments: medical Managment Do you want consulting provider notified?: Yes Primary care physician: Humera Bradley Hospital Course: This is an 86-year-old female who has been followed in our office by Dr. Randle for continued complaints of right knee pain due to right knee osteoarthritis. Treatment options were discussed, and patient elected to undergo a right total knee arthroplasty. Patient was seen pre-operatively by Dr. Orozco, Dr. Durant and cleared for surgery. Patient underwent a right total knee arthroplasty on 04/01/[address] Randle. The procedure was performed without complication or sequelae. The patient is doing fairly well postoperatively. Vital signs and labs are stable on postoperative day #3. Patient was examined bedside today. Patient states she is overall doing well and the pain in her right knee is well-controlled. She has been ambulating with a walker with minimal assistance. Patient is tolerating her diet well. She is voiding without issues. Patient is comfortable being discharged home with home health care today. Patient denies chest pain, shortness of breath, nausea, vomiting, fevers, chills. On examination, the patient is sitting up in the bedside chair in no apparent distress. She is alert and orientated 3. On inspection of the right knee, there is a clean, dry, intact Opsite dressing in place. Patient has good strength and ROM of the right ankle and toes. Motor and sensory function is intact of the right lower extremity. The dorsalis pedis pulse is easily palpable, the right lower extremity is warm and well perfused with brisk capillary refill. Calf is soft and non-tender to palpation. Patient is discharged home with home health care today in good condition, pending medical clearance. Patient will follow-up with Dr. Randle in the office in 2 weeks. Please see med rec for accurate list of discharge medication. Plan - Discharge Summary Discharge Rx Participant: No New Discharge Prescriptions: New HYDROcodone/APAP 5-325MG [[place] 5-325] 1 - 2 tab PO Q6HR PRN 7 Days #32 tab PRN Reason: Pain Docusate [Colace] 100 mg PO BID #60 capsule Omeprazole 40 mg PO DAILY 30 Days #30 cap No Action Oxybutynin Chloride [Ditropan] 5 mg PO BID Lansoprazole [Prevacid] 30 mg PO DAILY Diltiazem Cd [Cardizem CD] 180 mg PO DAILY Cholecalciferol [Vitamin D3] 2,000 unit PO DAILY Celecoxib [CeleBREX] 200 mg PO DAILY Docusate [Colace] 100 mg PO DAILY lisinopriL [Zestril] 10 mg PO DAILY Apixaban [Eliquis] 5 mg PO BID Metoprolol Tartrate [Lopressor] 50 mg PO QAM Acetaminophen [Tylenol Arthritis] 650 mg PO DIRECTED PRN PRN Reason: Pain Discharge Medication List Celecoxib [CeleBREX] 200 mg PO DAILY 04/25/14 [History] Cholecalciferol [Vitamin D3] 2,000 unit PO DAILY 04/25/14 [History] Diltiazem Cd [Cardizem CD] 180 mg PO DAILY 04/25/14 [History] Lansoprazole [Prevacid] 30 mg PO DAILY 04/25/14 [History] Oxybutynin Chloride [Ditropan] 5 mg PO BID 04/25/14 [History] Docusate [Colace] 100 mg PO DAILY 11/03/17 [History] Apixaban [Eliquis] 5 mg PO BID 12/14/20 [History] lisinopriL [Zestril] 10 mg PO DAILY 12/14/20 [History] Acetaminophen [Tylenol Arthritis] 650 mg PO DIRECTED PRN 03/25/22 [History] Metoprolol Tartrate [Lopressor] 50 mg PO QAM 03/25/22 [History] Docusate [Colace] 100 mg PO BID #60 capsule 04/01/22 [Rx] Omeprazole 40 mg PO DAILY 30 Days #30 cap 04/01/22 [Rx] HYDROcodone/APAP 5-325MG [[place] 5-325] 1 - 2 tab PO Q6HR PRN 7 Days #32 tab 04/04/22 [Rx] Follow up Appointment(s)/Referral(s): Jacinto Randle MD [Medical Doctor] - 2 Weeks Activity/Diet/Wound Care/Special Instructions: Weight bear to tolerance on operative extremity with a walker. Keep operative dressing intact until follow-up appointment in the office. Call the office if dressing becomes saturated or falls off. May shower over dressing. Take pain medications as prescribed. Resume Eliquis for DVT prophylaxis. Follow-up in the office in two weeks at [facility]. Call the office with any questions or concerns, Discharge Disposition: HOME WITH HOME HEALTH SERVICES
[2022-04-04] MEDS ORDERED: FAMOTIDINE 20 MG TAB PO SCH (09:00)
[2022-04-04 09:15] LABS: Basophils % (A) 0 %; Eosinophils % (A) 0 %; HCT 35.9 % (34.0-46.0); Lymphocytes % (A) 8 %; MCH 30.2 pg (25.0-35.0); MCHC 33.5 g/dL (31.0-37.0); MCV 90.4 fL (80.0-100.0); Monocytes # (A) 0.7 k/uL (0-1.0); Monocytes % (A) 6 %; Neutrophils # (A) 10.4 k/uL (1.3-7.7); Neutrophils % (A) 85 %; Platelet Count 226 k/uL (150-450); RBC 3.97 m/uL (3.80-5.40); RDW 14.1 % (11.5-15.5); WBC 12.3 k/uL (3.8-10.6)
[2022-04-04] MEDS: APIXABAN 5 MG TAB PO SCH (10:30)
[2022-04-04] MEDS: DILTIAZEM CD 180 MG CAP.ER.24H PO SCH (10:30)
[2022-04-04] MEDS: OXYBUTYNIN CHLORIDE 5 MG TAB PO SCH (10:31)
[2022-04-04] MEDS: METOPROLOL TARTRATE 25 MG TAB PO SCH (10:31)
--- NOTE | 2022-04-04 11:22 | P.PN ---
Subjective This is a pleasant 86 years old female with multiple medical problems admitted for severe osteoarthritis and she underwent total knee arthroplasty. Today is postoperative day #1. Patient denies chest pain or dyspnea. No other complaints. No abdominal pain, she has constipation but she wants to wait and denied any legs active, no urinary complaints like no change in frequency or dysuria, no headache or numbness or weakness. No headache or dizziness. Last that she has some hallucination and she got agitated and pulled her IV line, could be secondary to anesthesia medications However this morning is back to normal Vitals stable and blood pressure is normal. No labs, CBC pending 04/03/2022 Patient denies any new complaints, her pain in the right knee is somewhat controlled This morning she was walking in her room using the walker by herself with no difficulties. No chest pain or dyspnea or other complaint. Blood pressure is slightly elevated 170/93, we will keep monitoring. BMP is unremarkable. CBC still pending. Intravenous fluid discontinue it and currently she is on her home dose of Eliquis 5 mg. 04/04/2022 Patient this morning is as symptomatic. She denies chest pain or dyspnea, no abdominal pain or vomiting. She still constipated but she does not want laxative. No urinary complaints or neurological complaints. Her pain at the surgery site is better controlled and orthopedic team are planning for discharge. Patient today. Patient was doing good and walked in front of me using her walker to the bathroom. She is back on her Eliquis. Hemoglobin is normal today. WBC trending down most likely is reactive secondary to surgery. Blood pressure was up again this morning 163/89 and 162/75. Patient, resume her metoprolol 50 mg and lisinopril 10 mg which are home doses upon discharge and close monitor her blood pressure with her PCP. Objective - Vital Signs Vital signs: Vital Signs Temp 98.4 F 04/04/22 07:46 Pulse 95 04/04/22 07:46 Resp 17 04/04/22 07:46 BP 162/75 04/04/22 07:46 Pulse Ox 97 04/04/22 07:46 FiO2 Intake & Output 04/03/22 04/04/22 04/04/22 18:59 06:59 18:59 Intake Total 1080 Balance 1080 Intake: Oral 1080 Other: Voiding Method Toilet # Voids 3 3 - Exam GENERAL: The patient is alert and oriented x3, not in any acute distress. Well developed, well nourished. HEENT: Pupils are round and equally reacting to light. EOMI. No scleral icterus. No conjunctival pallor. Normocephalic, atraumatic. No pharyngeal erythema. No thyromegaly. CARDIOVASCULAR: S1 and S2 present. No murmurs, rubs, or gallops. PULMONARY: Chest is clear to auscultation, no wheezing or crackles. ABDOMEN: Soft, nontender, nondistended, normoactive bowel sounds. No palpable organomegaly. -MUSCULOSKELETAL: No joint swelling or deformity. Right knee surgical wound with a dressing in a Place, rest of exam is deferred to surgery team EXTREMITIES: No cyanosis, clubbing, or pedal edema. NEUROLOGICAL: Gross neurological examination did not reveal any focal deficits. SKIN: No rashes. no petechiae. - Labs CBC & Chem 7: 04/04/22 08:21 04/03/22 05:48 Labs: Abnormal Lab Results - Last 24 Hours (Table) 04/04/22 Range/Units 08:21 WBC 12.3 H (3.8-10.6) k/uL Neutrophils # 10.4 H (1.3-7.7) k/uL Assessment and Plan Assessment: Severe osteoarthritis status post right knee arthroplasty Chronic atrial fibrillation, on Eliquis at home History of GERD Plan: Continue with pain management as per surgery team Monitor blood pressure and heart rate Resume metoprolol 50 mg and lisinopril 10 mg Orthopedic primary team on the case Labs and medication were reviewed.. Continue same treatment. Continue with symptomatic treatment. Resume home medication. Monitor lytes and vitals. DVT and GI prophylaxis. Further recommendations as per clinical course of the pat ient DVT prophylaxis: Deferred to surgery team GI Prophylaxis: Pepcid We recommend patient follow up with her PCP Dr. Humera Stewart in 1 week after discharge and she agrees Thank you for consulting us
[2022-04-04] MEDS: LACTATED RINGERS 1,000 ML IV SCH (11:35)
[2022-04-04] MEDS: HYDROcodone/APAP 5-325MG 1 EACH TAB PO PRN (13:10)
== END 2022-04-04 13:24 | disposition home health service (06) ==
LOC: OR 08:45 → 4SSUR 12:37 → OR 04-04 06:54
PROVIDERS: ADMIT Orthopaedic Surgery; ATTEND Orthopaedic Surgery
DX: M17.11 Unilateral primary osteoarthritis, right knee (principal); G89.18 Other acute postprocedural pain; K21.9 Gastro-esophageal reflux disease without esophagitis; I10 Essential (primary) hypertension; K59.00 Constipation, unspecified; D64.9 Anemia, unspecified; M25.761 Osteophyte, right knee; I48.20 Chronic atrial fibrillation, unspecified; N32.81 Overactive bladder; Z85.41 Personal history of malignant neoplasm of cervix uteri; Z90.710 Acquired absence of both cervix and uterus; Z96.652 Presence of left artificial knee joint; Z82.49 Family history of ischemic heart disease and other diseases of the circulatory system; Z79.1 Long term (current) use of non-steroidal anti-inflammatories (NSAID); Z79.899 Other long term (current) drug therapy; Z79.01 Long term (current) use of anticoagulants
CPT/HCPCS: 97116 ×2; 97161; 64447; 64999; 76942; 85025 ×2; 73560; 27447; G0378; C1776; C1713; J2250; J0330; J1100 ×2; J2710; J0690; J2405; J3010; J1170; J2795; J1885; J2704; J2001